=== PATIENT | male | born 1930 | race Two or more races ===

== ENCOUNTER 2018-09-05 22:34 | Emergency (ER) | payer MEDICARE, OTHER ==
[~2018-09-05] VITALS: Ht 175.3 cm; Wt 85.3 kg
[~2018-09-05 22:34] MED LIST: ALPR0.254 PO; APIX5TAB PO; ASP81EC PO; CARV12.544 PO; FURO40TA4 PO; GABA300C10 PO; GLIP-115 PO; LISI-646 PO; NITR0.4S29 SL; PANT1INJ3 PO; POTA10TA51 PO; SIMV-8 PO; TRAM50TA2 PO; TRAZ100T2 PO
[2018-09-05 22:45] VITALS: BP 137/90
[2018-09-06 02:51] LABS: Basophils # (auto) 0 uL; Basophils % (auto) 0.2 % (0.0-2.0); Eosinophils # (auto) 0.1 uL; Eosinophils % (auto) 0.8 % (0.0-7.0); Hematocrit 44.6 % (41.0-53.0); Hemoglobin 14.5 g/dL (13.5-17.5); Lymphocytes # (auto) 1.3 uL; Lymphocytes % (auto) 18.4 % (10.0-50.0); Mean Corpuscular Hemoglobin 28.7 pg (28.0-32.0); Mean Corpuscular Hgb Conc. 32.4 g/dL (32.0-36.0); Mean Corpuscular Volume 88.4 fL (80.0-100.0); Monocytes # (auto) 0.6 uL; Monocytes % (auto) 8.6 % (0.0-12.0); Neutrophils # (auto) 5.1 uL; Nucleated Red Blood Cells % 0.1 %; Platelet Count (auto) 143 10^3/uL (140-450); Red Blood Cells 5.04 10^6/uL (4.5-5.90); Red Cell Distribution Width 14.3 % (11.8-14.3); White Blood Cell 7.1 10^3/uL (4.4-10.8)
[2018-09-06 03:07] LABS: Albumin 3.7 g/dL (3.4-5.0); Calcium 9.1 mg/dL (8.5-10.1); Potassium 3.6 mmol/L (3.5-5.1)
[2018-09-06 03:10] LABS: BUN/Creatinine Ratio 16.7
[2018-09-06 03:12] LABS: Bilirubin, Total 2.6 mg/dL (0.2-1.0); Total Protein 7.5 g/dL (6.4-8.2)
== END 2018-09-06 05:00 | disposition left against medical advice (07) ==
LOC: ER 22:34
DX: M54.9 Dorsalgia, unspecified (principal); Z53.21 Procedure and treatment not carried out due to patient leaving prior to being seen by health care provider
CPT/HCPCS: 36415; 80053; 85025; 93005